=== PATIENT | female | born 1940 | race African-American/Black ===

== ENCOUNTER 2016-12-11 21:11 | Inpatient (IN) | payer MEDICARE, MEDICAID ==
[~2016-12-11] VITALS: Ht 165.1 cm; Wt 68.0 kg
[2016-12-11] MEDS ORDERED: SODIUM CHLORIDE 0.9% 1,000 ML IV ONE (22:34)
[2016-12-11] MEDS ORDERED: SODIUM CHLORIDE 0.45% 1,000 ML IV SCH (23:16)
[2016-12-11] MEDS ORDERED: HYDROCODONE/ACETAMINOPHEN 5/325MG TABLET PO PRN (23:30)
[2016-12-11] MEDS ORDERED: CLONIDINE 0.1MG TABLET PO PRN (23:30)
[2016-12-11] MEDS ORDERED: LORAZEPAM 2MG/ML CPJ IV PRN (23:30)
[2016-12-11] MEDS ORDERED: GUAIFENESIN 200MG/10ML SUGAR FREE UDC PO PRN (23:30)
[2016-12-11] MEDS ORDERED: ENOXAPARIN 40MG/0.4ML SYR SUBCUT SCH (23:30)
[2016-12-11] MEDS ORDERED: IPRATROPIUM/ALBUTEROL 0.5-3(2.5)MG/3ML NEB INH PRN (23:30)
[2016-12-11] MEDS ORDERED: MAGNESIUM/ALUMINUM HYDROXIDE/SIMETHICONE 30ML UDC PO PRN (23:30)
[2016-12-11] MEDS ORDERED: ACETAMINOPHEN 325MG TABLET PO PRN (23:30)
[2016-12-11] MEDS ORDERED: ONDANSETRON HCL 4MG/2ML VIAL IV PRN (23:30)
[2016-12-11] MEDS ORDERED: HYDROMORPHONE HCL/PF 2MG/ML CPJ IV PRN (23:30)
[2016-12-11] MEDS ORDERED: NA PHOS,M-B/NA PHOS,DI-BA ENEMA 118ML PR PRN (23:30)
[2016-12-11] MEDS ORDERED: DIPHENHYDRAMINE 50MG/ML VIAL IV PRN (23:30)
[2016-12-11 23:32] LABS: BASOPHILS % 0.4 % (0.0-2.0); EOSINOPHILS % 0.7 % (0.0-5.0); HEMATOCRIT. 34.9 % (36.0-48.0); HEMOGLOBIN. 11.2 g/dL (12.0-16.0); LYMPHOCYTES % 17.4 % (20.0-50.0); MEAN CORPUSCULAR HEMOGLOBIN 23.4 pg (28.0-32.0); MEAN CORPUSCULAR VOLUME 73.2 fL (81.0-99.0); MEAN PLATELET VOLUME 9.2 fl (7.4-10.4); MONOCYTES % 4.6 % (2.0-8.0); NEUTROPHILS % 76.9 % (40.0-76.0); PLATELET 172 x1000/uL (130-400); RED BLOOD CELL COUNT 4.77 mill/uL (4.2-5.4); RED CELL DISTRIBUTION WIDTH 16.4 % (11.6-14.6)
[2016-12-11 23:41] LABS: AMMONIA < 10 uMol/L (<32)
[2016-12-11 23:45] LABS: CARBON DIOXIDE 26 mEq/L (21-32); CHLORIDE 103 mEq/L (98-107); CREATINE KINASE 26 IU/L (26-192); ETHANOL BLOOD < 10 mg/dL; TROPONIN I < 0.02 ng/mL (0.00-0.04)
[2016-12-12 02:12] LABS: CLARITY URINE CLOUDY (CLEAR); COLOR URINE YELLOW (YELLOW); GLUCOSE URINE NEGATIVE (NEGATIVE); KETONES URINE TRACE (NEGATIVE); LEUKOCYTE ESTERASE URINE 2+ (NEGATIVE); NITRITE URINE NEGATIVE (NEGATIVE); OCCULT BLOOD URINE NEGATIVE (NEGATIVE); PROTEIN URINE TRACE (NEGATIVE); SPECIFIC GRAVITY URINE 1.014 (1.005-1.030)
[2016-12-12] MEDS ORDERED: ALEN70TA46 PO (04:32)
[2016-12-12] MEDS ORDERED: METO25TA6 PO (04:38)
[2016-12-12] MEDS ORDERED: NIFE60TA64 PO (04:38)
[2016-12-12] MEDS ORDERED: COMBIGAN (04:38)
[2016-12-12] MEDS ORDERED: INDA1.255 PO (04:39)
[2016-12-12] MEDS ORDERED: CLOP75TA33 PO (04:39)
[2016-12-12] MEDS ORDERED: SIMV10TA6 PO (04:40)
[2016-12-12 06:57] VITALS: BP 154/80
[2016-12-12 08:00] VITALS: BP 146/91
[2016-12-12] MEDS ORDERED: NON FORMULARY PATIENT HOME MED EA OP SCH (08:45)
[2016-12-12 08:46] LABS: BASOPHILS % 0.6 % (0.0-2.0); HEMATOCRIT. 34.6 % (36.0-48.0); LYMPHOCYTES % 26.8 % (20.0-50.0); MEAN CORPUSCULAR HEMOGLOBIN 23.6 pg (28.0-32.0); MEAN CORPUSCULAR VOLUME 74.1 fL (81.0-99.0); MEAN PLATELET VOLUME 9.9 fl (7.4-10.4); MONOCYTES % 6.6 % (2.0-8.0); PLATELET 173 x1000/uL (130-400); RED BLOOD CELL COUNT 4.67 mill/uL (4.2-5.4); RED CELL DISTRIBUTION WIDTH 16.2 % (11.6-14.6)
[2016-12-12 08:55] LABS: CARBON DIOXIDE 25 mEq/L (21-32); CHLORIDE 104 mEq/L (98-107); HDL CHOLESTEROL 39 mg/dL (40-59); LDL CHOLESTEROL 69 mg/dL (5-100); T4 FREE 1.22 ng/dL (0.76-1.46)
[2016-12-12] MEDS: ENOXAPARIN 30MG/0.3ML SYR SUBCUT SCH (09:00)
[2016-12-12] MEDS: ASPIRIN 81MG EC TABLET PO SCH (09:00)
[2016-12-12] MEDS ORDERED: POTASSIUM CHLORIDE 20MEQ TABLET SR PO NR (09:35)
[2016-12-12] MEDS: COMBIGAN EYE DROPS EACHEYE SCH ×2 (10:18→16:03)
[2016-12-12] MEDS: SODIUM CHLORIDE 0.9% 1,000 ML IV SCH ×2 (10:26→21:27)
[2016-12-12] MEDS: CLOPIDOGREL 75MG TABLET PO SCH (10:26)
[2016-12-12] MEDS: NIFEDIPINE XL 60MG TAB PO SCH (10:27)
[2016-12-12] MEDS: METOPROLOL TARTRATE 25MG TABLET PO SCH ×2 (10:27→21:19)
[2016-12-12] MEDS: INDAPAMIDE 1.25MG TABLET PO SCH (10:27)
[2016-12-12 12:00] VITALS: BP 152/87
[2016-12-12 15:39] LABS: CREATINE KINASE MB FRACTION 0.6 ng/mL (0.5-3.6)
[2016-12-12 16:00] VITALS: BP 123/57
[2016-12-12] MEDS ORDERED: BIMA2.5D4 EACHEYE (16:07)
[2016-12-12] MEDS ORDERED: NON FORMULARY PATIENT HOME MED EA XX SCH (16:15)
[2016-12-12] MEDS: LEVOFLOXACIN 500MG TABLET PO SCH (16:45)
[2016-12-12 20:00] VITALS: BP 131/55
[2016-12-12] MEDS: EYE OP SCH (21:17)
[2016-12-12] MEDS: LUMIGAN 0.01% OP SCH (21:17)
[2016-12-12] MEDS: ATORVASTATIN CALCIUM 10MG TABLET PO SCH (21:17)
[2016-12-13] VITALS: BP 147/63
[2016-12-13] LABS: CREATINE KINASE 38 IU/L (26-192); CREATINE KINASE MB FRACTION 0.6 ng/mL (0.5-3.6); TROPONIN I < 0.02 ng/mL (0.00-0.04)
[2016-12-13 04:00] VITALS: BP 146/95
[2016-12-13 06:29] LABS: BASOPHILS % 0.5 % (0.0-2.0); EOSINOPHILS % 1.5 % (0.0-5.0); HEMATOCRIT. 33.5 % (36.0-48.0); HEMOGLOBIN. 10.6 g/dL (12.0-16.0); LYMPHOCYTES % 30.8 % (20.0-50.0); MEAN CORPUSCULAR HEMOGLOBIN 23.5 pg (28.0-32.0); MEAN PLATELET VOLUME 9.1 fl (7.4-10.4); MONOCYTES % 8.2 % (2.0-8.0); PLATELET 162 x1000/uL (130-400); RED BLOOD CELL COUNT 4.53 mill/uL (4.2-5.4); RED CELL DISTRIBUTION WIDTH 16.3 % (11.6-14.6)
[2016-12-13 07:28] LABS: CHLORIDE 108 mEq/L (98-107)
[2016-12-13 07:36] LABS: CARBON DIOXIDE 24 mEq/L (21-32); CREATINE KINASE 38 IU/L (26-192); CREATINE KINASE MB FRACTION 0.5 ng/mL (0.5-3.6)
[2016-12-13 08:00] VITALS: BP 154/75
[2016-12-13] MEDS: CLOPIDOGREL 75MG TABLET PO SCH (08:49)
[2016-12-13] MEDS: ASPIRIN 81MG EC TABLET PO SCH (08:49)
[2016-12-13] MEDS: NIFEDIPINE XL 60MG TAB PO SCH (08:50)
[2016-12-13] MEDS: METOPROLOL TARTRATE 25MG TABLET PO SCH ×2 (08:51→22:39)
[2016-12-13] MEDS: COMBIGAN EYE DROPS EACHEYE SCH ×2 (09:00→17:00)
[2016-12-13] MEDS: ENOXAPARIN 30MG/0.3ML SYR SUBCUT SCH (09:01)
[2016-12-13] MEDS: INDAPAMIDE 1.25MG TABLET PO SCH (09:01)
[2016-12-13] MEDS: LOSARTAN POTASSIUM 25 MG TABLET PO SCH (11:30)
[2016-12-13] MEDS: LEVOFLOXACIN 500MG TABLET PO SCH (11:30)
[2016-12-13] MEDS: SODIUM CHLORIDE 0.9% 1,000 ML IV SCH ×2 (11:40→22:38)
[2016-12-13 12:00] VITALS: BP_SYST 102; BP_SYST 130; BP_DIAS 69; BP_DIAS 78
[2016-12-13 16:00] VITALS: BP 133/61
[2016-12-13 20:00] VITALS: BP 143/82
[2016-12-13] MEDS: EYE OP SCH (22:38)
[2016-12-13] MEDS: ATORVASTATIN CALCIUM 10MG TABLET PO SCH (22:38)
[2016-12-13] MEDS: LUMIGAN 0.01% OP SCH (22:38)
[2016-12-14] VITALS (7 sets, daily range): BP systolic 125–159; BP diastolic 59–83
[2016-12-14] MEDS: ASPIRIN 81MG EC TABLET PO SCH (08:52)
[2016-12-14] MEDS: CLOPIDOGREL 75MG TABLET PO SCH (08:52)
[2016-12-14] MEDS: METOPROLOL TARTRATE 25MG TABLET PO SCH ×2 (08:53→20:59)
[2016-12-14] MEDS: NIFEDIPINE XL 60MG TAB PO SCH (08:53)
[2016-12-14] MEDS: INDAPAMIDE 1.25MG TABLET PO SCH (08:53)
[2016-12-14] MEDS: LOSARTAN POTASSIUM 25 MG TABLET PO SCH (08:53)
[2016-12-14] MEDS: ENOXAPARIN 30MG/0.3ML SYR SUBCUT SCH (08:54)
[2016-12-14] MEDS: COMBIGAN EYE DROPS EACHEYE SCH ×2 (08:54→17:45)
[2016-12-14] MEDS: DOCUSATE SODIUM 100MG CAPSULE PO PRN (09:00)
[2016-12-14] MEDS: LEVOFLOXACIN 500MG TABLET PO SCH (11:51)
[2016-12-14] MEDS: SODIUM CHLORIDE 0.9% 1,000 ML IV SCH (11:54)
[2016-12-14] MEDS: LUMIGAN 0.01% OP SCH (20:59)
[2016-12-14] MEDS: EYE OP SCH (20:59)
[2016-12-14] MEDS: ATORVASTATIN CALCIUM 10MG TABLET PO SCH (20:59)
[2016-12-15] VITALS (8 sets, daily range): BP systolic 125–169; BP diastolic 70–88
[2016-12-15] MEDS: SODIUM CHLORIDE 0.9% 1,000 ML IV SCH (03:21)
[2016-12-15] MEDS: COMBIGAN EYE DROPS EACHEYE SCH (08:47)
[2016-12-15] MEDS: DOCUSATE SODIUM 100MG CAPSULE PO PRN (08:47)
[2016-12-15] MEDS: ASPIRIN 81MG EC TABLET PO SCH (08:47)
[2016-12-15] MEDS: NIFEDIPINE XL 60MG TAB PO SCH (08:48)
[2016-12-15] MEDS: METOPROLOL TARTRATE 25MG TABLET PO SCH (08:48)
[2016-12-15] MEDS: CLOPIDOGREL 75MG TABLET PO SCH (08:48)
[2016-12-15] MEDS: ENOXAPARIN 30MG/0.3ML SYR SUBCUT SCH (08:49)
[2016-12-15] MEDS ORDERED: LOSARTAN POTASSIUM 50 MG TABLET PO SCH (09:00)
[2016-12-15] MEDS: INDAPAMIDE 1.25MG TABLET PO SCH (09:07)
[2016-12-15] MEDS: LEVOFLOXACIN 500MG TABLET PO SCH (13:45)
== END 2016-12-15 16:30 | disposition home health service (06) | DRG 73 ==
LOC: ER 21:32 → 7WST 12-12 00:33 → EDBEDREQ 12-12 00:37 → EDBEDREQTM 12-12 00:37 → CANRESERV 12-12 02:06 → ENRESERV 12-12 02:06
PROVIDERS: ADMIT Internal Medicine; ATTEND Internal Medicine
DX: G90.8 Other disorders of autonomic nervous system (principal); G93.41 Metabolic encephalopathy; E46 Unspecified protein-calorie malnutrition; E86.0 Dehydration; I10 Essential (primary) hypertension; D64.9 Anemia, unspecified; I27.2 Other secondary pulmonary hypertension; E87.6 Hypokalemia; E78.5 Hyperlipidemia, unspecified; J44.9 Chronic obstructive pulmonary disease, unspecified; Z79.899 Other long term (current) drug therapy; Z68.25 Body mass index [BMI] 25.0-25.9, adult
CPT/HCPCS: 36415; 70450; 71010; 72170; 72192; 78582; 80048; 80053; 80061; 81001; 82140; 82550; 82553; 82962; 83036; 83605; 83880; 84439; 84443; 84484; 85025; 85379; 87040; 93005; 93306; 93970; 96360; 97162; 97166; 99285; A6261; A9558; G0482; J1650; J7030